=== PATIENT | male | born 1975 | race Caucasian/White ===

== ENCOUNTER 2016-05-27 01:38 | Emergency (ER) | payer OTHER ==
[2016-05-27 01:53] VITALS: BP 141/84
[2016-05-27] MEDS ORDERED: NAPROXEN 250 MG TABLET PO ONE (02:15)
[2016-05-27] MEDS: NAPROXEN 250 MG TABLET PO STA (02:18)
--- NOTE | 2016-05-27 03:00 | XRAY Preliminary Report ---
Exam: XR Finger(s) LT IMPRESSION: No acute osseous abnormality demonstrated. [facility] SITE ID: [id number]
--- NOTE | 2016-05-27 03:03 | XRAY Report ---
EXAM: LEFT 4TH DIGIT RADIOGRAPHY EXAM DATE: 05/27/2016 02:51 AM. CLINICAL HISTORY: Finger bent during work. COMPARISON: None. TECHNIQUE: 3 views. A total of 4 exposures are provided for review. FINDINGS: Bones: Normal. No fracture or bone lesion. Joints: Normal. No effusions. No subluxations. Soft Tissues: Normal. No soft tissue swelling. IMPRESSION: No acute osseous abnormality demonstrated. [facility] Referring Provider Line: [phone] SITE ID: [id number]
--- NOTE | 2016-05-27 03:03 | XRAY Preliminary Report ---
Exam: XR Knee 4 View LT IMPRESSION: No acute osseous abnormality demonstrated. [facility] SITE ID: [id number]
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
--- NOTE | 2016-05-27 03:05 | XRAY Report ---
EXAM: LEFT KNEE RADIOGRAPHY EXAM DATE: 05/27/2016 02:51 AM. CLINICAL HISTORY: Twisting/contusion injury a day ago. COMPARISON: None. TECHNIQUE: 5 views. FINDINGS: Bones: Normal. No fractures or bone lesions. Joints: Normal. No effusion. No subluxations. Soft Tissues: Normal. No soft tissue swelling. IMPRESSION: No acute osseous abnormality demonstrated. [facility] Referring Provider Line: [phone] SITE ID: [id number]
== END 2016-05-27 03:09 | disposition home or self-care (01) ==
LOC: ED 01:38
DX: S29.012A Strain of muscle and tendon of back wall of thorax, initial encounter (principal); S63.635A Sprain of interphalangeal joint of left ring finger, initial encounter; S86.912A Strain of unspecified muscle(s) and tendon(s) at lower leg level, left leg, initial encounter; Y35.811A Legal intervention involving manhandling, law enforcement official injured, initial encounter; Y92.89 Other specified places as the place of occurrence of the external cause; Y99.0 Civilian activity done for income or pay; M54.9 Dorsalgia, unspecified; G89.29 Other chronic pain; F17.200 Nicotine dependence, unspecified, uncomplicated
CPT/HCPCS: 73140; 99283; 99284